=== PATIENT | female | born 1965 | race African-American/Black ===

== ENCOUNTER 2016-09-08 12:30 | Emergency (ER) | payer BC ==
[~2016-09-08] VITALS: Ht 170.2 cm; Wt 96.5 kg
[~2016-09-08 12:30] MED LIST: CEFUROXIME500 MG PO; TRAMADOL HCL50 MG PO
[2016-09-08 13:29] LABS: HEMATOCRIT 35.3 % (36.0-46.0); MCH 21.7 PG (29.0-34.0); MCV 67.8 FL (83-99); MEAN PLAT.VOLUME 10.7 uM^3 (9.5-12.4); PLATELET COUNT 226 K/uL (156-360); RBC DIS.WIDTH-CV 14.9 % (11.8-14.6); RBC DIS.WIDTH-SD 36.6 % (39-53); RED BLOOD COUNT 5.21 M/uL (3.80-5.20); WHITE BLOOD COUNT 5.8 K/uL (4.1-10.2)
[2016-09-08 13:55] LABS: CHLORIDE 105 mEq/L (99-109); POTASSIUM 3.7 mEq/L (3.7-5.4); SODIUM 141 mEq/L (136-147)
[2016-09-08 13:58] LABS: GLUCOSE 111 mg/dL (70-99)
[2016-09-08 13:59] LABS: ANION GAP 9 MEQ/L (2-14)
[2016-09-08 14:00] LABS: TOTAL BILIRUBIN 0.4 mg/dL (0.0-1.0)
[2016-09-08 14:01] LABS: ALKALINE PHOSPHATASE 54 IU/L (3-129); GFR ESTIMATE (CALCULATED) > 59 mL/min/; TROP-I INTERPRETATION NEGATIVE; TROPONIN-I 0.01 ng/mL (0.0-0.30)
[2016-09-08 14:02] LABS: UREA NITROGEN (BUN) 13 mg/dL (9-23)
[2016-09-08 14:05] LABS: LIPASE 18 U/L (1.0-51.0)
[2016-09-08 14:40] LABS: ADD MIUA? YES; BILIRUBIN NEGATIVE; BLOOD NEGATIVE; COLOR YELLOW ((YELLOW)); GLUCOSE (STRIP) NEGATIVE; KETONES NEGATIVE; LEUKOCYTES TRACE; NITRITE NEGATIVE; PROTEIN (STRIP) NEGATIVE; SPECIFIC GRAVITY 1.011 (1.000-1.030); UROBILINOGEN 0.2 MG/DL (0.2-1.0)
[2016-09-08 14:50] LABS: BACTERIA RARE /HPF; EPITHELIAL CELLS RARE /HPF; MUCUS TRACE /LPF; RED BLOOD CELLS 0-5 /HPF (0-5)
[2016-09-08 17:14] VITALS: BP 125/78
== END 2016-09-08 17:24 | disposition home or self-care (01) ==
LOC: EME → EDBD 12:30 → EME 12:30
PROVIDERS: Nurse Practitioner Family
DX: K59.00 Constipation, unspecified (principal); R10.13 Epigastric pain
CPT/HCPCS: 71020; 74177; 80053; 81003; 83690; 84484; 85027; 93005; 99281; 99284; J7030